=== PATIENT | female | born 1960 | race Caucasian/White ===

== ENCOUNTER 2016-10-30 08:54 | Emergency (ER) | payer SELFPAY ==
[~2016-10-30] VITALS: Ht 162.6 cm; Wt 63.6 kg
[2016-10-30 09:00] VITALS: BP 122/71; PULSE 77; RESP 16; O2SAT 98
--- NOTE | 2016-10-30 09:13 | ED.REPORT ---
HPI-Extremity Problem Lower Date of Service Oct 30, 2016 ED Provider: Rafael Wong MD This is a 56 year old female presenting to the emergency department complaining of R leg pain that began 4 days ago. Described as sharp, begins at R thigh and radiates down to the calf. Pain is worse with standing. Denies recent trauma or injuries. Denies hip pain, fever, chills, nausea, vomiting, or shorntess of breath. Pt stared on citalopram one month ago. Nursing Notes Stated Complaint: RIGHT LEG PAIN Chief Complaint: Extremity Trauma Nursing Notes Reviewed: Yes ([facility] not reconciled) Allergies: Coded Allergies: codeine (Verified Allergy, Unknown, 10/30/16) Scheduled PRN Hydrocodone-Acetaminophen 5-325 mg (Hydrocodone-Acetaminophen 5-325 mg) 1 Each Tablet 1 TABLET PO Q4H PRN PRN For Pain General Time Seen by MD: 09:08 Chief Complaint Leg injury right Hx Obtained From: Patient Arrived By: Walk-in Onset Occurred: 4 days ago Symptom Duration: Since onset Severity: Current: Moderate Pertinent Negative: Pt denies other symptoms Recent Healthcare: No recent doctor visit, No recent hospitalization Similar Sx Previous: No Risk-Extremity Prob Lower Well's Criteria for DVT Altern dx DVT likely (-2) Well's DVT Score: 0 pts (low risk 5%) Past Medical History Past Medical History Denies Denies: Coronary artery disease, Diabetes mellitus, HIV, Hyperlipidemia, Hypertension Past Surgical History Denies Smoking History Current Every Day Smoker Social History Alcohol Use: Denies alcohol use Ambulatory Status Independent Review of Systems Constitutional: Denies: Chills, Fever Musculoskeletal: Reports: Extremity pain, Denies: Back pain, Extremity swelling, Neck pain Skin: Denies Diaphoresis Neurologic: Denies: Headache Complete sys rev & neg: except as marked. Physical Exam Initial Vital Signs Vital Signs (First) Date Time Temp Pulse Resp B/P Pulse Ox O2 Delivery O2 Flow Rate FiO2 10/30/16 09:00 36.4 77 16 122/71 98 Room Air Initial VS: Reviewed, Vital signs normal General/Constitutional: Well-developed, Well-nourished Head / Eyes: Atraumatic, Normocephalic, PERRL ENT: Mucous membranes moist, Conjunctiva normal, No scleral icterus Neck: Supple, Non-tender, Full range of motion Respiratory: Breath sounds normal, Clear to auscultation, No respiratory distress Cardiovascular: Regular rate & rhythm, Heart sounds normal, Intact distal pulses Upper Extremities: Vascular intact, Neuro intact, No swelling, No tenderness Skin: Warm, Dry, No cyanosis Neurologic: Alert, Oriented, Nonfocal Psychiatric: Mood/affect normal, Behavior normal, Normal thought content Lower Extremity / Pelvis / MS: Neurologic intact, Vascular intact Ankle / Foot: Atraumatic, Inspection NL, Full range of motion, No swelling, No erythema, Non-tender, No deformity, Neurologic intact, Vascular intact, No edema Re-Eval/Medical Decision Med Decision/Clinical Course This is a 56-year-old female presents with acute right lower extremity pain in the thigh down into the calf that began spontaneously several days ago but has persisted. There is no prior history of DVT, no clear DVT risk factors are present, there is also been no trauma and or alternate cause. She denies chest pain or shortness of breath. She is not taking any medicines for the pain reports she does not take any medicines routinely. On exam she has some mild tenderness in the calf and thigh, but has preserved range of motion without clinical signs of fracture dislocation. Her right hip, right knee, right ankle joint exams are normal. The skin is normal throughout with no signs of cellulitis or infection. There are good distal pulses with strong DP and PT pulses present. Overall clinical exam does not demonstrate an overt cause or etiology. Given the atraumatic nature and the location of the pain DVTs in the diagnosis list, but is by no means definitive. I am not finding indication for plain radiographs. Ultrasound study was negative. The patient was recently started on citalopram which is currently her only will medication, but she denies being stabbed in her other myopathy inducing medication. Epocrates was referenced, there are nolistings of rhabdo or myopathy associated with citalopram per this resource. Patient declined pain medicines department. She generally appears well and is ambulatory. Not finding much to indicate a need for emergent laboratory testing at this stage. I think the next episode while little bit more time, and symptomatic management-with understanding the symptoms are not improving, reevaluation be warranted. Patient's comfort this. I have written a short course of some when necessary hydrocodone, the patient does not think that she will necessarily need to fill the prescriptions, which I have encouraged her not to fill it unless required. She is given referral to for PCP follow-up Source of Hx: Old records Differential Diagnosis: Negative: Abrasion, Abscess, Achilles tendon rupture, Ankle dislocation, Arterial occlus/ischemia, Fracture, Greater trochant fracture , Guillain-[place] syndrome, Hip dislocation ant, Hip dislocation post, Hip fracture, Intertrochanteric fractur, Venous thromboembolism Counseled Regarding: Diagnosis, Lab results, Need for follow-up Discharge & Departure Impression: Primary Impression: Pain of right lower extremity Disposition: Home Discharge Condition All VS Reviewed: Yes Condition: Stable Additional Instructions: 1. A dangerous cause of the right leg pain was not identified. 2. You had an ultrasound of the leg performed today to evaluate for the possibility of a blood clot (DVT) - the ultrasound was normal. 3. Activities as tolerated. 4. Take Tylenol 1000 mg 4 times a day for soreness 5. You can also take ibuprofen 400 mg 3 times a day with food. 6. If absolutely needed for more severe pain, instead of the Tylenol he can take hydrocodone/APAP 5/325 1 tab up to four times a day. Use sparingly, and only if needed. : This medication does contain a narcotic and causes some dizziness and drowsiness. If he needs to take this medicine, no driving for at least 4 hours after taking. Scribe Attestation Portions of this note were transcribed by Theresa Massey. I, Dr. Wong personally performed the history, physical exam and medical decision-making; I reviewed and confirmed the accuracy of the information in the transcribed note. Signed by: Theresa Massey. 10/30/2016, 15:00. Rafael Wong MD Oct 30, 2016 09:13 THERESA MASSEY Oct 30, 2016 09:19
[2016-10-30] MEDS ORDERED: HYDR-4003 PO (11:46)
[2016-10-30 12:00] VITALS: BP 109/67; PULSE 78; RESP 16; O2SAT 98
--- NOTE | 2016-10-30 12:51 | DRSVH ---
PROCEDURE: US VEINOUS LEG DUPLEX UNILATERAL, RIGHT INDICATIONS: Pain ro DVT TECHNIQUE: Real-time imaging, as well as color and pulse Doppler interrogation, were performed of the lower extr emity deep veins from the inguinal ligament to the popliteal fossa. COMPARISON: None. FINDINGS: The deep veins are normally compressible, and free of intraluminal thrombus. Color and pu lse Doppler demonstrate normal phasic intraluminal flow. There is normal augmentation response to di stal compression maneuver. IMPRESSION: No evidence for DVT in the right lower extremity. Dictated by: Shelton Torres M.D. on 10/30/2016 at 12:49 Approved by: Shelton Torres M.D. on 10/30/2016 at 12:49
== END 2016-10-30 12:00 | disposition home or self-care (01) ==
LOC: SED 08:54
DX: M79.604 Pain in right leg (principal); F17.200 Nicotine dependence, unspecified, uncomplicated; Z88.5 Allergy status to narcotic agent